=== PATIENT | female | born 1985 | race Native Hawaiian/Other Pacific Islander ===

== ENCOUNTER 2017-11-26 21:01 | Emergency (ER) | payer OTHER, MEDICAID ==
[~2017-11-26] VITALS: Ht 172.7 cm; Wt 124.7 kg
[~2017-11-26 21:01] MED LIST: ACETAMINOPHEN-1 EAC1 PO; ALLOPURINOL 10100 M1 PO; ALLOPURINOL 10100 M3 PO; AMOXICILLIN 50500 MG PO; AZITHROMYCIN 2250 MG PO; CIPRO500 MG PO; COLCHICINE0.6 MG; COLCHICINE0.6 MG PO; FLAGYL500 MG PO; FLEXERIL PO; HYDROCODON-ACE1 EAC7 PO; HYDROCODONE-AP1 EAC6 PO; HYDROCODONE-APA1 TA1 PO; IBUPROFEN 800800 M1 PO; IBUPROFEN 800800 MG PO; INDOMETHACIN 5050 MG PO; MEDROL DOSPAK21 TA1 PO; MEDROLDOSEPACK PO; NAUSEA MEDS; NOHOMEMEDICATIONS; NORCO 5-325 TA1 EAC1 PO; NORCO 5-325 TA1 EACH PO; PHENERGAN 25 MG25 M1 PO; PREDNISONE 10 M10 MG PO; PREDNISONE 20 M20 MG PO; PREDNISONE50 MG PO; TORADOL 10 MG T10 MG PO; TRAMADOL 50 MG50 MG PO
[2017-11-26] MEDS ORDERED: AMOXICILLIN 50500 MG (21:14)
[2017-11-26] MEDS ORDERED: PRENATAL (21:15)
[2017-11-26 21:37] VITALS: BP 135/71
== END 2017-11-26 21:38 | disposition home or self-care (01) ==
LOC: M.ERS 21:01
DX: O99.612 Diseases of the digestive system complicating pregnancy, second trimester (principal); M27.63 Post-osseointegration mechanical failure of dental implant; M10.9 Gout, unspecified; F17.210 Nicotine dependence, cigarettes, uncomplicated; Z90.49 Acquired absence of other specified parts of digestive tract; Z3A.22 22 weeks gestation of pregnancy

== ENCOUNTER 2018-02-14 11:11 | Emergency (ER) | payer OTHER, MEDICAID ==
[~2018-02-14] VITALS: Ht 152.4 cm; Wt 124.7 kg
[~2018-02-14 11:11] MED LIST changes: +AMOXICILLIN 50500 MG; +PRENATAL
[2018-02-14] MEDS ORDERED: NORCO 5-325 TA1 EACH PO (11:45)
[2018-02-14] MEDS ORDERED: PREDNISONE 20 M20 MG PO (11:45)
[2018-02-14 11:54] VITALS: BP 125/64
== END 2018-02-14 11:53 | disposition home or self-care (01) ==
LOC: M.ERS 11:11
DX: O26.893 Other specified pregnancy related conditions, third trimester (principal); M10.9 Gout, unspecified; O99.333 Smoking (tobacco) complicating pregnancy, third trimester; Z90.49 Acquired absence of other specified parts of digestive tract; Z3A.31 31 weeks gestation of pregnancy

== ENCOUNTER 2019-05-16 13:45 | Emergency (ER) | payer OTHER, MEDICAID ==
[~2019-05-16] VITALS: Ht 170.2 cm; Wt 111.1 kg
[2019-05-16] MEDS ORDERED: LEXAPRO 10 MG T10 M2 PO (14:13)
[2019-05-16] MEDS ORDERED: TRAZODONE HCL100 MG PO (14:13)
[2019-05-16] MEDS ORDERED: MEDROLDOSEPACK PO (14:22)
[2019-05-16] MEDS ORDERED: INDOMETHACIN 2525 MG PO (14:22)
[2019-05-16 14:27] VITALS: BP 113/64
== END 2019-05-16 14:27 | disposition home or self-care (01) ==
LOC: M.ERS 13:45
DX: M10.071 Idiopathic gout, right ankle and foot (principal); F17.210 Nicotine dependence, cigarettes, uncomplicated; Z90.49 Acquired absence of other specified parts of digestive tract

== ENCOUNTER 2020-02-17 14:20 | Emergency (ER) | payer OTHER ==
[~2020-02-17] VITALS: Ht 170.2 cm; Wt 127.0 kg
[~2020-02-17 14:20] MED LIST changes: +INDOMETHACIN 2525 MG PO; +LEXAPRO 10 MG T10 M2 PO; +TRAZODONE HCL100 MG PO
[2020-02-17] MEDS ORDERED: WELLBUTRIN SR100 MG PO (14:50)
[2020-02-17 16:29] LABS: URINE BILIRUBIN NEGATIVE (Negative); URINE BLOOD 2+ (Negative); URINE CLARITY CLOUDY; URINE COLOR YELLOW; URINE GLUCOSE-RANDOM NEGATIVE (Negative); URINE KETONES NEGATIVE (Negative); URINE LEUKOCYTES-REFLEX 1+ (Negative); URINE NITRITE-REFLEX NEGATIVE (Negative); URINE PROTEIN TRACE (Negative); URINE SPECIFIC GRAVITY >= 1.030 (1.005-1.030); URINE UROBILINOGEN 0.2 E.U./dl (0.2-1.0)
[2020-02-17 16:38] LABS: MUCUS 0-3 Light strn/LPF (None Seen); SQUAMOUS >10 Many /LPF (0-3)
[2020-02-17 16:40] LABS: BACTERIA-REFLEX 1-9 Few /HPF (None Seen); CRYSTALS None Seen /LPF (None Seen); URINE RBC 0-2 Rare /HPF (0-2); URINE WBC-REFLEX 6-15 Few /HPF (0-5)
[2020-02-17 16:41] LABS: CASTS None Seen /LPF (None Seen)
[2020-02-17 19:17] VITALS: BP 124/70
[2020-02-18] MEDS ORDERED: KEFLEX500 M1 PO (15:16)
== END 2020-02-17 19:19 | disposition left against medical advice (07) ==
LOC: M.ERS 14:20
PROVIDERS: Physician Assistant
DX: N39.0 Urinary tract infection, site not specified (principal); M10.9 Gout, unspecified; Z90.49 Acquired absence of other specified parts of digestive tract; F17.210 Nicotine dependence, cigarettes, uncomplicated